=== PATIENT | male | born 1965 | race Caucasian/White ===

== ENCOUNTER → 2018-12-01 | Outpatient (CLI) | payer OTHER ==
--- NOTE | 2018-12-01 23:38 | CONS ---
CONSULTATION DATE OF SERVICE: 12/01/2018 This patient is a 53-year-old gentleman who has been evaluated in the sleep center for possible obstructive sleep apnea-hypopnea syndrome. HISTORY OF PRESENT ILLNESS/SLEEP-WAKE EVALUATION: Patient usually goes to bed at 8 p.m. and sleeps until 4 a.m. on working days and sleeps from 8 to 5 a.m. on weekends. Sometimes he has problem with falling asleep, although no TV in bedroom. He usually sleeps on the back position with loud snoring, according to his . He wakes up from sleep several times, according to his , and he also has significant rolling movements during the night. He does not take any naps. Morse Sleepiness Scale although increased to 10. PAST MEDICAL HISTORY: Positive for hyperlipidemia. PAST SURGICAL HISTORY: Status post left shoulder surgery in 2013. MEDICATIONS: Aspirin, pravastatin. SOCIAL HISTORY: Positive history of smoking for about 22 years, less than a pack a day. Alcohol consumption occasional. FAMILY HISTORY: Loud snoring by his father. REVIEW OF SYSTEMS: Loud snoring, tiredness and sleepiness during the day. PHYSICAL EXAMINATION: GENERAL: A pleasant gentleman without distress. VITAL SIGNS: BP 115/76, HR 100, RR 16, height 5 feet 8 inches, weight 191.6 pounds, body mass index 29, temperature 98.5, oxygen saturation at room air 95%. HEENT: PERRLA, EOMI. Evaluation of oropharynx showed tongue protrudes midline. Extremely low position of soft palate. Mallampati IV. NECK: Supple. No JVD. Thyroid is not palpable. Wide neck; 17-1/2 inches in circumference. LUNGS: Clear to percussion and to auscultation. Good air exchange. No wheezing or rhonchi. HEART: S1, S2 regular. No murmurs, gallops or rubs. ABDOMEN: Soft and nontender. Bowel sounds are present. No organomegaly. EXTREMITIES: No clubbing or cyanosis. 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 Cranial nerves 2 to 7 intact. There is no fasciculation or atrophy. noted. No focal deficits observed. IMPRESSION: 1. Loud snoring, low position of soft palate, wide neck, excessive daytime sleepiness; obstructive sleep apnea-hypopnea syndrome. 2. Overweight; body mass index 29. 3. Hyperlipidemia. 4. Status post left shoulder surgery in 2013. PLAN: 1. Polysomnography for evaluation of patient's breathing during sleep. 2. CPAP/BiPAP titration if sleep study confirms obstructive sleep apnea-hypopnea syndrome. 3. Preferable position during sleep on the side. 4. No driving if patient feels any sleepiness. 5. I will see patient for follow up visit to explain results of testing and following plan. Sincerely, Ran Floyd MD, PhD, FAASM Diplomat of [employer] [employer] [employer] Clinical Assessment Manager of [facility] MMODL / IJN: [id number] /
== END | disposition home or self-care (01) ==
LOC: SLEEP 15:55
PROVIDERS: ATTEND Internal Medicine
DX: G47.33 Obstructive sleep apnea (adult) (pediatric) (principal); E78.5 Hyperlipidemia, unspecified; E66.3 Overweight; Z98.890 Other specified postprocedural states; Z79.82 Long term (current) use of aspirin; Z79.899 Other long term (current) drug therapy; Z87.891 Personal history of nicotine dependence; Z68.29 Body mass index [BMI] 29.0-29.9, adult
CPT/HCPCS: 99211